=== PATIENT | female | born 1945 | race Caucasian/White ===

== ENCOUNTER → 2020-03-08 | Outpatient (CLI) | payer MEDICARE, OTHER ==
--- NOTE | 2020-03-08 15:35 | RADIOLOGY REPORT (SQ) ---
EXAM DESCRIPTION: FOOT RIGHT COMPLETE IMAGES COMPLETED DATE/TIME: 03/08/2020 3:17 pm REASON FOR STUDY: (M79.671)PAIN IN RIGHT FOOT;(M86.171)OTHER ACUTE OSTEOMYELITIS, RIGHT ANKLE M79.67 1 PAIN IN RIGHT FOOT M86.171 OTHER ACUTE OSTEOMYELITIS, RIGHT ANKLE AND FOOT COMPARISON: None. NUMBER OF VIEWS: Three views. TECHNIQUE: AP, lateral and oblique radiographic images acquired of the right foot. LIMITATIONS: None. FINDINGS: MINERALIZATION: Decreased. BONES: No fracture dislocation. No definitive bony erosions or sclerosis to suggest osteomyelitis. Osteoarthritic change with scattered osteophytes at the interphalangeal joints and dorsal midfoot. JOINTS: No effusions. SOFT TISSUES: Scattered vascular calcifications. OTHER: No other significant finding. IMPRESSION: 1. No evidence of acute bony abnormality. No definitive findings of osteomyelitis. 2. Decreased osseous mineralization with scattered osteoarthritic change. TECHNICAL DOCUMENTATION: JOB ID: [id number] 2010 [employer]- All Rights Reserved Reading location - IP/workstation name: [email or web address]
== END ==
LOC: RAD 14:49
PROVIDERS: ATTEND Podiatrist Foot & Ankle Surgery
DX: M79.671 Pain in right foot (principal); M86.171 Other acute osteomyelitis, right ankle and foot